=== PATIENT | male | born 1975 | race Caucasian/White ===

== ENCOUNTER 2022-12-17 13:28 | Outpatient (RCR) | payer BC, SELFPAY ==
--- NOTE | 2022-12-17 15:55 | MHC.PT.EP ---
[facility] [place] Office [place] Office [place] Office [address] Laron Moran [address] [phone] F: [phone] F: [phone] F: [phone] F: [phone] Physical Therapy Plan of Care Date of Evaluation: Date of Surgery: Diagnosis: L shoulder pain. 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 Pt is deemed an appropriate candidate to receive skilled PT services to address their physical impairments in order to improve their functional ability. Frequency and Duration: The patient will be seen 2 x/ wk x 5 wks. Short Term Goals: Initiate HEP. Improve baseline pain from 2-5/10 to at most 1-3/10. Fdc Goals: I with Home Program. Pt will no linger be disturbed of sleep d/t shoulder pain; initial: 10% disturbed. Improve SPADI questionnaire by at least 9 points. Pt will be able to place objects on high shelf with managed Sx; initial 01/02. Treatment Plan: Modalities to reduce pain, spasms and effusion. Manual therapy to restore motion and function. Therapeutic exercise to improve strength and flexibility. Neuromuscular re-education for posture and balance. Therapeutic activities to return to functional activities of daily living. Electronically signed by: Xavier Sharma PT. Please sign and return to therapist. Thank you for your referral.
--- NOTE | 2023-02-16 16:25 | MHC.PT.DC ---
[facility] [place] Office [place] Office [place] Office [address] Laron Moran [address] [phone] F: [phone] F: [phone] F: [phone] F: [phone] Physical Therapy Discharge Report Diagnosis: L shoulder pain. Date of Surgery: Date of Evaluation: 12/17/22 Date of Discharge: 02/16/23 Treatments to Date: 1 Cancellations to Date: No Shows to Date: Discharge Status: Patient Elected to Stop Discharge Summary: Pt called to report too many other apts. and to DC. Electronically signed by: Xavier Sharma PT. Please sign and return to therapist. Thank you for your referral.
== END 2023-02-16 16:25 | disposition home or self-care (01) ==
LOC: HO.PTCHIC 13:28
PROVIDERS: PCP Internal Medicine; Visit Provider Internal Medicine
DX: M25.512 Pain in left shoulder (principal)
CPT/HCPCS: 97110; 97161

== ENCOUNTER 2023-02-01 14:42 | Outpatient (AMB) | payer BC, SELFPAY ==
[2023-02-01 14:50] VITALS: BP 135/80; PULSE 80; BMI 21.3
--- NOTE | 2023-02-01 14:50 | MHC.OFFVIS ---
Intake Vital Signs 02/01/23 14:50 Height 5 ft 8 in Weight 139 lb 12.369 oz BMI 21.3 BP 135/80 Blood Pressure Location Lt brachial Position Sitting Pulse 80 Intake Visit Reasons: colonocopy screening Intake Note: Cole presents in office as a new.patient for a colonoscopy screening. PT CC: pt reports having GERD pt denies any other GI Issues Precise Winder Required: No Accompanied by: Self / Same As Patient Allergies lactose Allergy (Mild, Verified 02/01/23 15:21) Diarrhea pollen Adverse Reaction (Uncoded 02/01/23 14:52) Itchy Eyes HPI colonocopy screening HPI Details 47 year old? male here today for pre colonoscopy screening.? Patient was sent to us by his PCP.? This is his first colonoscopy screening.? Patient denies any gastrointestinal symptoms in the past or at present.? Patient is lactose intolerant. Denies any personal or family history of gastrointestinal disease, colon polyps, or cancer.? Denies history of difficulty with sedation or anesthesia in the past.? Negative for history of sleep apnea.? Denies any history of cardiac, renal, pulmonary, or hepatic disease.?? No history of infectious? diseases like hepatitis A, B, C, HIV or tuberculosis.? Patient is not on any anticoagulation therapy. [facility] Medical History Annual visit for general adult medical examination with abnormal findings Erectile dysfunction Family history of prostate cancer in father Pain of left shoulder region Smoker unmotivated to quit Surgical History H/O wisdom tooth extraction Family History Father Prostate cancer, Onset Age: 52 Brother Nephrolithiasis Social History Housing: House Alcohol intake: current Alcohol intake frequency: a few times a month Patient Tobacco Use Status: Current everyday Tobacco user Cigarette Packs Per Day: 1 Cigarettes Per Day: 20 e-Cigarette/Vaping Use: Never Used service: No Current occupational status: employed 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 Cognitive needs: No Hearing needs: No Vision needs: Yes Review of Systems Const Denies weight gain and Denies weight loss ENT Reports no additional complaints, Denies dysphagia and Denies odynophagia Card Reports no additional complaints Resp Reports no additional complaints GI Denies abdominal pain, Denies belching, Denies melena, Denies bloating, Denies change in bowel habits, Denies dysphagia, Denies excessive flatus, Denies dyspepsia, Denies heartburn, Denies diarrhea, Denies loose stools, Denies nausea, Denies odynophagia and Denies vomiting Reports no additional complaints Musc Reports no additional complaints Neuro Reports no additional complaints Psych Reports no additional complaints Endo Reports no additional complaints Physical Exam Vital Signs: Last Vital Signs Pulse 80 02/01/23 14:50 BP 135/80 02/01/23 14:50 BMI result Body Mass Index 21.3 Const General: healthy appearing, no acute distress and well developed Nutritional Appearance: well nourished Orientation/consciousness: patient oriented x3 HEENT Head: Yes normal to inspection, Yes normocephalic and Yes atraumatic Face and sinus: Yes normal facial exam Mouth: Normal oral and palatal mucosa present Throat: Yes posterior oropharynx normal, Yes tonsils normal and Yes uvula midline Eyes General: appearance normal, both eyes and all related structures Neck Neck: Yes normal visual inspection, Yes full ROM and Yes trachea midline Thyroid: Thyroid normal Resp Effort & Inspection: normal respiratory effort, able to speak in complete sentences, no tracheal deviation and symmetric chest movement Auscultation: clear to auscultation bilaterally Cardio Rate: regular rate Heart sounds: S1 normal heart sound present and S2 normal heart sound present GI Inspection: Yes normal to inspection and No distended Palpation (GI): Soft to palpation, not firm, nontender and No hepatosplenomegaly present Auscultation: normal bowel sounds General: Yes no CVA tenderness Back/Spine/Pelvis Back: no CVA tenderness Skin General skin exam: elasticity normal, turgor normal and dry skin Neuro General: patient oriented x3 Psych Appearance: grossly normal Mental Status: mental status grossly normal Speech and movement: Normal speech and movement present Affect: normal affect Assessment & Plan Assessment & Plan (1) Screen for colon cancer: Code(s): Z12.11 - Encounter for screening for malignant neoplasm of colon Plan: Patient denies any GI, cardiac or respiratory symptoms.? Denies any issues with anesthesia in the past.? Denies any history of sleep apnea.? No history infectious diseases in the past or present.? Not on any anticoagulation therapy.? No family or personal history of colon cancer or polyps.? Patient denies melena, hematochezia, unintentional weight loss or ribbon like stools.? Discussed at length the pre-procedure,? prep, diet & medications as well as what to expect prior, during and after the procedure.?? Stressed the importance of good bowel prep. ?Recommended the use of Vaseline or Calmoseptine OTC & baby wipes with bowel movements to promote comfort.? ?Patient verbalizes understanding and agrees to plan of care.? He was given the opportunity to ask questions and all questions answered.? We will see him after the procedure.? Reminded patient to going get blood work done that was ordered by PCP. Thank you for allowing me to participate in his care Coding Level of Care Code New Pt Level 3 (29452) Diagnoses Screen for colon cancer Z12.11 Time Spent (min) 40 Comment 30 minutes spent with patient and additional 10 minutes spent reviewing his records
== END 2023-02-01 15:23 | disposition home or self-care (01) ==
PROVIDERS: PCP Internal Medicine; Visit Provider Nurse Practitioner Family
DX: Z01.818 Encounter for other preprocedural examination (principal); Z12.11 Encounter for screening for malignant neoplasm of colon
CPT/HCPCS: S0285

== ENCOUNTER → 2023-02-01 14:42 | Outpatient (BNVA) | payer BC, SELFPAY | PROVIDERS: PCP Internal Medicine; Visit Provider Nurse Practitioner Family ==

== ENCOUNTER 2023-03-22 15:55 | Outpatient (AMB) | payer BC, SELFPAY ==
--- NOTE | 2023-03-22 15:57 | MHC.OFFWIV ---
Intake Vital Signs 03/22/23 15:58 Height 5 ft 8 in Weight 130 lb BMI 19.8 BP 140/90 H Blood Pressure Location Lt brachial Position Sitting Pulse 78 Pulse Source Pulse Oximeter Pulse Oximetry (%) 98 Oxygen Delivery Method Room Air Intake Visit Reasons: EP LT Side Shoulder pain Intake Note: Patient here for left shoulder pain. he did go see his pcp and they believe it could be a pinched nerve but the pain has become very painful. pt states the shoulder pain radiates down to the elbow and wrist, hips and calves. This weekend he started having jaw pain where he could bare talk. Patient Tobacco Use Status: Current everyday Tobacco user Allergies lactose Allergy (Mild, Verified 03/23/23 14:38) Diarrhea pollen Adverse Reaction (Uncoded 03/23/23 14:38) Itchy Eyes Medication List - Last Reconciled 03/23/23 by Zachery Carlos MD cyclobenzaprine 10 mg PO BEDTIME meloxicam 15 mg PO DAILY tadalafil (Cialis) 20 mg PO DAILY PRN Do you need a note to return to daycare/school/sports/work: No HPI EP LT Side Shoulder pain HPI Details 47-year-old male presents to the office for a sick visit. Patient comes to the office with his . He is complaining of low back pain, ankle pain and wrist pain. He reports he has had low back pain for many years but has gotten worse in the last few weeks. He was on vacation when the pain symptoms worsened. He had to go to a walk-in and received an injection, anti-inflammatories and also opiate medications. Patient continues to have low back pain. It is radiating down his right leg. No numbness or weakness. He has resumed work. [facility] Medical History Annual visit for general adult medical examination with abnormal findings Erectile dysfunction Family history of prostate cancer in father Pain of left shoulder region Smoker unmotivated to quit Surgical History H/O wisdom tooth extraction Family History Father Prostate cancer, Onset Age: 52 Brother Nephrolithiasis Social History Housing: House Alcohol intake: current Alcohol intake frequency: a few times a month Patient Tobacco Use Status: Current everyday Tobacco user Cigarette Packs Per Day: 1 Cigarettes Per Day: 20 e-Cigarette/Vaping Use: Never Used service: No Current occupational status: employed 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 Cognitive needs: No Hearing needs: No Vision needs: Yes Physical Exam Vital Signs: Last Vital Signs Pulse 78 03/22/23 15:58 BP 140/90 H 03/22/23 15:58 Pulse Ox 98 03/22/23 15:58 Oxygen Delivery Method Room Air 03/22/23 15:58 BMI result Body Mass Index 19.8 Const General: cooperative and healthy appearing Nutritional Appearance: well nourished Orientation/consciousness: patient oriented x3 Limitations: no limitations HEENT Head: Yes normal to inspection Eyes General: appearance normal, both eyes and all related structures Neck Neck: Yes normal visual inspection Chest Chest palpation & inspection: normal palpation of entire chest wall Resp Effort & Inspection: normal respiratory effort Neuro General: patient oriented x3 Assessment & Plan Assessment & Plan (1) Low back pain: Code(s): M54.50 - Low back pain, unspecified Plan: Patient was encouraged to get physical therapy done. He is more interested in getting a diagnostic test done for his spine. For this he would have to see his primary care provider. Anti-inflammatory and muscle relaxants have been called in. Medications: New meloxicam 15 mg PO DAILY 14 tabs 0RF cyclobenzaprine 10 mg PO BEDTIME 14 tabs 0RF Coding Level of Care Code Est Pt Level 3 (76664) Diagnoses Low back pain M54.50
[2023-03-22 15:58] VITALS: BP 140/90; PULSE 78; O2SAT 98; BMI 19.8
== END 2023-03-22 16:42 | disposition home or self-care (01) ==
PROVIDERS: PCP Internal Medicine; Visit Provider Internal Medicine
DX: M54.50 Low back pain, unspecified (principal)
CPT/HCPCS: 99213

== ENCOUNTER 2023-08-26 13:45 | Outpatient (AMB) | payer BC, SELFPAY ==
--- NOTE | 2023-08-26 13:53 | MHC.PC.OV ---
Vital Signs 08/26/23 13:54 Height 5 ft 8 in Weight 145 lb BMI 22.0 BP 146/80 H Blood Pressure Location Rt brachial Position Sitting Pulse 78 Pulse Source Pulse Oximeter Pulse Oximetry (%) 98 Oxygen Delivery Method Room Air Intake Visit Reasons: Sore Jaw Intake Note: Pt is here today c/o Lt shoulder pain into arm, no injury noted and jaw a times feels painful Allergies lactose Allergy (Mild, Verified 08/26/23 14:05) Diarrhea pollen Adverse Reaction (Uncoded 08/26/23 14:05) Itchy Eyes Medication List - Last Reconciled 08/26/23 by Lita Man MD No Known Home Meds Tobacco use date assessed: 08/26/23 Dental Screening Dental Screen Date: 08/26/23 Did you have a dental visit in the last 12 months?: No Was dental information given to patient?: Patient has dentist HPI Sore Jaw HPI Details 48-year-old male here today complaining of migratory joint pain, now more pronounced in left upper arm and shoulder. Patient would get aching pain in posterior back, knees, shoulders, fingers, and even on both temporomandibular joints. Patient states that he has been told that he frequently grinds his teeth when sleeping. Denies any history of trauma, no strenuous exertion. He has occasional erectile dysfunction, previously was taking Cialis as needed, would like to see if he can try just taking the daily Cialis dose. [facility] Medical History (Updated 08/26/23 @ 14:25 by Lita Man MD) Polyarthralgia Smoker unmotivated to quit Pain of left shoulder region Family history of prostate cancer in father Erectile dysfunction Annual visit for general adult medical examination with abnormal findings Surgical History H/O wisdom tooth extraction Family History Father Prostate cancer, Onset Age: 52 Brother Nephrolithiasis Social History Housing: House Alcohol intake: current Alcohol intake frequency: a few times a month Patient Tobacco Use Status: Current everyday Tobacco user Cigarette Packs Per Day: 1 Cigarettes Per Day: 20 e-Cigarette/Vaping Use: Never Used service: No Current occupational status: employed 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 1. Little interest or pleasure in doing things: not at all 2. Feeling down, depressed, or hopeless: not at all 3. Trouble falling or staying asleep, or sleeping too much: not at all 4. Feeling tired or having little energy: not at all 5. Poor appetite or overeating: not at all 6. Feeling bad about yourself - or that you are a failure or have let yourself or your family down: not at all 7. Trouble concentrating on things, such as reading the newspaper or watching television: not at all 8. Moving or speaking so slowly that other people could have noticed. Or the opposite - being so fidgety or restless that you have been moving around a lot more than usual: not at all 9. Thoughts that you would be better off or of hurting yourself in some way: not at all Total score: 0 Depression Screening Interpretation: Negative Depression Screening Done: Yes 60275 - PHQ-9 Billing: Yes Source: Developed by Drs. Howie Burnham, Mitzi Nino, Michael Johns and colleagues, with an educational ghazal from [employer]. Thrive Questionnaire Date Thrive assessed: 08/26/23 I am a: Patient What is your living situation today?: I have a steady place to live Within the past 12 months, did the food you bought not last and you didn't have the money to get more?: Never true Within the past 12 months, did you worry whether your food would run out before you got money to buy more?: Never true Do you have trouble paying for medicines?: No Do you have trouble getting transportation to medical appointments?: No Do you have trouble paying your heating and electricity bill?: No Do you have trouble taking care of your child, family member or friend?: No Do you have trouble with day-to-day activities such as bathing, preparing meals, shopping, managing finances, etc.?: No Are you currently unemployed and looking for a job?: No Are you interested in more education?: No THRIVE Score: 0 AUDIT C Alcohol Use Questionnaire (AUDIT-C) 1. How often do you have a drink containing alcohol?: 4 or more times a week 2. How many drinks containing alcohol do you have on a typical day when you are drinking?: 3 or 4 3. How often do you have six or more drinks on one occasion?: Weekly Total Score: 8 LOLIS-7 AMB Questionnaire LOLIS-7 Date LOLIS - 7 assessed: 08/26/23 Feeling nervous, anxious, or on edge: 0 = Not at all Not being able to stop or control worryin = Not at all Worrying too much about different things: 0 = Not at all Trouble relaxin = Not at all Being so restless that it is hard to sit still: 0 = Not at all Becoming easily annoyed or irritable: 0 = Not at all Feeling afraid as if something awful might happen: 0 = Not at all Total LOLIS-7 score (0-4 normal; 5-9 mild; 10-14 moderate; 15-21 severe): 0 Source: Developed by Drs. Howie Burnham, Mitzi Nino, Michael Johns and colleagues, with an educational ghazal from [employer]. LOLIS-7 Assessment Billing LOLIS-7 Assessment Tool: LOLIS-7 Assessment 01943 Review of Systems Const Denies difficulty sleeping, Denies fatigue, Denies headache(s) and Reports weight gain ENT Reports no additional complaints, Reports Normal hearing present and Denies headache(s) Card Reports no additional complaints Resp Reports no additional complaints GI Denies abdominal pain, Denies belching, Denies melena, Denies bloating, Denies change in bowel habits, Denies excessive flatus, Denies dyspepsia, Denies heartburn, Denies nausea and Denies vomiting Reports no additional complaints Musc Reports no additional complaints Neuro Reports no additional complaints, Reports Normal hearing present, Denies headache(s) and Denies Sensory deficit (Neuro) Psych Reports no additional complaints Endo Reports no additional complaints and Denies fatigue Physical exam (Primary Care) Vital Signs: Last Vital Signs Pulse 78 08/26/23 13:54 BP 146/80 H 08/26/23 13:54 Pulse Ox 98 08/26/23 13:54 Oxygen Delivery Method Room Air 08/26/23 13:54 BMI result Body Mass Index 22.0 Tobacco/Smoking Status: Tobacco use Status Tobacco use date assessed 08/26/23 08/26/23 14:02 Patient Tobacco Use Status Current everyday Tobacco 08/26/23 14:02 Tobacco use type 03/22/23 15:53 e-Cigarette/Vaping Use Never Used 08/26/23 14:02 Are you ready to quit: No Tobacco cessation counseling provided: Yes PHQ-9: PHQ-9 Score PHQ-9: Total score 0 08/26/23 14:25 Depression Screening Interpretation: Negative Thrive Assessment: Date of Thrive Assessment Date Thrive assessed 08/26/23 08/26/23 14:25 Const General: no acute distress and alert Nutritional Appearance: average body habitus Orientation/consciousness: patient oriented x3 Limitations: no limitations HENMT Head: Yes normocephalic and Yes atraumatic Ears: hearing grossly normal bilaterally and external ears normal General nose exam: Normal external nose present Face and sinus: Yes face symmetric Mouth: moist mucous membranes Eyes Conjunctivae: conjunctivae normal Sclerae: sclerae normal Pupils: Equal, round and reactive pupils present EOM: EOMs intact bilaterally Neck Neck: Yes full ROM and Yes no lymphadenopathy Thyroid: Thyroid normal Resp Effort & Inspection: normal respiratory effort and able to speak in complete sentences Auscultation: clear to auscultation bilaterally Cardio Jugular venous distension: no JVD Rate: regular rate Rhythm: regular rhythm Heart sounds: S1 normal heart sound present and S2 normal heart sound present GI Inspection: Yes normal to inspection Palpation (GI): Soft to palpation Auscultation: normal bowel sounds General: Yes no CVA tenderness Back/Spine/Pelvis Back: no CVA tenderness Skin General skin exam: no rashes or lesions noted Neuro General: patient oriented x3, gait normal, moves all extremities, no focal motor deficits and CN's II-XI intact bilaterally Cranial nerves: Yes Equal, round and reactive pupils present and Yes Normal hearing present Cognition (Neuro): normal cognition Gait exam (Neuro): Normal gait present Motor exam (neuro): 5/5 motor strength present throughout Sensory Exam: No Sensory deficit (Neuro) Extrem General: Yes normal to inspection, Yes full ROM, Yes no pedal edema and Yes normal gait Assessment and Plan Assessment & Plan (1) Polyarthralgia: Code(s): M25.50 - Pain in unspecified joint Plan: Has polyarthralgia, labs ordered to check MYLES, rheumatoid factor, sed rate, TSH, CRP, Lyme anti body titer (2) Erectile dysfunction: Code(s): N52.9 - Male erectile dysfunction, unspecified Qualifiers: Erectile dysfunction type: unspecified Qualified Code(s): N52.9 - Male erectile dysfunction, unspecified Plan: Patient would like to switch from as needed Cialis to daily dosing. Prescription was sent for tadalafil 5 mg to take 1 tablet once a day to be taken at same time every day (3) Elevated blood pressure reading in office without diagnosis of hypertension: Code(s): R03.0 - Elevated blood-pressure reading, without diagnosis of hypertension Plan: Systolic blood pressure mildly elevated, likely due to patient currently in some discomfort due to pain and stiffness in left shoulder joint, will monitor blood pressure, strongly advised to quit smoking here and adhere to low-sodium diet, reminded that he has an appointment for physical in 3 month Orders: Orders MYLES Reflex Titer and Pattern 08/26/23 M25.50 - Pain in unspecified joint Rheumatoid Factor 08/26/23 M25.50 - Pain in unspecified joint Erythrocyte Sedimentation Rate 08/26/23 M25.50 - Pain in unspecified joint TSH reflex Free T4 08/26/23 M25.50 - Pain in unspecified joint Lyme IgG/IgM w/reflex to WB 08/26/23 M25.50 - Pain in unspecified joint CRP High Sensitivity 08/26/23 M25.50 - Pain in unspecified joint Medications: New tadalafil (Cialis) 5 mg PO DAILY 30 tabs 0RF Coding Level of Care Code Est Pt Level 3 (36768) Diagnoses Polyarthralgia M25.50 Erectile dysfunction, unspecified erectile dysfunction type N52.9 Erectile dysfunction type: unspecified Elevated blood pressure reading in office without diagnosis of hypertension R03.0 Additional Codes LOLIS-7 Assessment Billing - LOLIS-7 Assessment Tool: LOLIS-7 Assessment 37878 ([id number])
[2023-08-26 13:54] VITALS: BP 146/80; PULSE 78; O2SAT 98; BMI 22.0
== END 2023-08-26 16:04 | disposition home or self-care (01) ==
PROVIDERS: PCP Internal Medicine; Visit Provider Internal Medicine
DX: M25.50 Pain in unspecified joint (principal); N52.9 Male erectile dysfunction, unspecified; R03.0 Elevated blood-pressure reading, without diagnosis of hypertension
CPT/HCPCS: 99213

== ENCOUNTER 2023-08-28 06:51 | Outpatient (REF) | payer BC, SELFPAY ==
[2023-08-28 11:58] LABS: Rheumatoid Factor < 13.0 IU/mL (<15.0)
[2023-08-28 12:12] LABS: Alanine Aminotransferase 16 U/L (0-40); Anion Gap 12 (12-20); Aspartate Amino Transferase 22 U/L (5-37); Blood Urea Nitrogen 7 mg/dL (9-16); Calcium 9.4 mg/dL (8.4-10.2); Carbon Dioxide 28 mmol/L (22-29); Chloride 106 mmol/L (96-108); Cholesterol 185 mg/dL (<200); Estimated Glomerular Filt Rate > 60; Glucose Fasting 95 mg/dL (60-99); HDL Cholesterol 46 mg/dL (>40); LDL Cholesterol Calculated 110 mg/dL (<100); Potassium 4.4 mmol/L (3.3-5.1); Sodium 142 mmol/L (135-145); Triglycerides 145 mg/dL (<150)
[2023-08-28 12:25] LABS: PSA,Total (Free>4and<10) 0.52 ng/mL (0.00-4.00)
[2023-08-28 12:30] LABS: TSH reflex Free T4 2.86 uIU/mL (0.32-4.0)
[2023-08-28 12:44] LABS: Erythrocyte Sedimentation Rate 4 MM/HR (0-15)
[2023-08-30 14:40] LABS: CRP High Sensitivity 0.4 mg/L
[2023-09-01 07:08] LABS: Lyme Blot 9.91 index
[2023-09-01 14:03] LABS: Lyme Abs Screen POSITIVE
[2023-09-02 13:44] LABS: Anti Nuclear Antibody Screen NEGATIVE (NEGATIVE)
[2023-09-02 16:18] LABS: Testosterone, Total 623 ng/dL (250-1100)
[2023-09-03 15:08] LABS: 18 KD (IgG) Band REACTIVE; 23 KD (IgG) Band NON-REACTIVE; 23 KD (IgM) Band REACTIVE; 28 KD (IgG) Band REACTIVE; 30 KD (IgG) Band REACTIVE; 39 KD (IgM) Band REACTIVE; 39KD (IgG) Band REACTIVE; 41 KD (IgM) Band NON-REACTIVE; 41KD (IgG) Band REACTIVE; 45 KD (IgG) Band REACTIVE; 58 KD (IgG) Band REACTIVE; 66 KD (IgG) Band REACTIVE; 93 KD (IgG) Band REACTIVE; Lyme IgG Blot Interp POSITIVE (NEGATIVE); Lyme IgM Blot Interp POSITIVE (NEGATIVE)
== END 2023-08-28 06:52 | disposition home or self-care (01) ==
LOC: HO.HMGCLDS 06:51
PROVIDERS: PCP Internal Medicine; Visit Provider Internal Medicine
DX: Z00.01 Encounter for general adult medical examination with abnormal findings (principal); Z12.5 Encounter for screening for malignant neoplasm of prostate; M25.50 Pain in unspecified joint; N52.9 Male erectile dysfunction, unspecified; Z80.42 Family history of malignant neoplasm of prostate
CPT/HCPCS: 36415; 80048; 80061; 84153; 84402; 84403; 84443; 84450; 84460; 85652; 86038; 86141; 86431; 86617; 86618

== ENCOUNTER 2023-11-18 14:07 | Outpatient (AMB) | payer BC, SELFPAY ==
[2023-11-18 14:11] VITALS: BP 146/80; PULSE 90; TEMP 36.5; O2SAT 96; BMI 22.7
--- NOTE | 2023-11-18 14:11 | MHC.OFFWIV ---
Intake Vital Signs 11/18/23 14:11 Height 5 ft 8 in Weight 149 lb BMI 22.7 BP 146/80 H Blood Pressure Location Lt brachial Position Sitting Pulse 90 Pulse Source Pulse Oximeter Temp 97.7 F Temp Source Temporal Artery Scan Pulse Oximetry (%) 96 Oxygen Delivery Method Room Air Intake Visit Reasons: EP LT elbow swelling Intake Note: pt is here today for lft elbow swelling started 11/07 Patient Tobacco Use Status: Current everyday Tobacco user Allergies lactose Allergy (Mild, Verified 11/18/23 14:14) Diarrhea pollen Adverse Reaction (Uncoded 08/26/23 14:05) Itchy Eyes Do you need a note to return to daycare/school/sports/work: No HPI HPI Comments History of Present Illness Details The patient presents today for evaluation of left elbow swelling. He states it has been going on for about a week but really only noticed it today when he went to lean on it. The does admit to leaning on his elbow on the left quite frequently during his workday. This has been going on for many years. He does not have any pain in the elbow. No redness PFSH Medical History (Updated 08/26/23 @ 14:25 by Lita Man MD) Polyarthralgia Smoker unmotivated to quit Pain of left shoulder region Family history of prostate cancer in father Erectile dysfunction Annual visit for general adult medical examination with abnormal findings Surgical History H/O wisdom tooth extraction Family History Father Prostate cancer, Onset Age: 52 Brother Nephrolithiasis Social History Housing: House Alcohol intake: current Alcohol intake frequency: a few times a month Patient Tobacco Use Status: Current everyday Tobacco user Cigarette Packs Per Day: 1 Cigarettes Per Day: 20 e-Cigarette/Vaping Use: Never Used service: No Current occupational status: employed 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 Cognitive needs: No Hearing needs: No Vision needs: Yes Physical Exam Vital Signs: Last Vital Signs Temp 97.7 F 11/18/23 14:11 Pulse 90 11/18/23 14:11 BP 146/80 H 11/18/23 14:11 Pulse Ox 96 11/18/23 14:11 Oxygen Delivery Method Room Air 11/18/23 14:11 BMI result Body Mass Index 22.7 Const General: healthy appearing and no acute distress Orientation/consciousness: patient oriented x3 Eyes Corneas: corneas normal Pupils: Equal, round and reactive pupils present Chest Chest palpation & inspection: no tenderness Resp Effort & Inspection: normal respiratory effort and able to speak in complete sentences GI Palpation (GI): nontender Neuro General: patient oriented x3 Cranial nerves: Yes Equal, round and reactive pupils present Extrem Other: Left upper extremity: Left elbow full range of motion. Olecranon bursitis noted. No overlying erythema Psych Appearance: grossly normal Attitude: cooperative Assessment & Plan Assessment & Plan (1) Olecranon bursitis of left elbow: Code(s): M70.22 - Olecranon bursitis, left elbow Plan Olecranon bursitis. Recommend to change his positioning at work and not lean on his elbow. Use ibuprofen if he develops pain. Coding Level of Care Code Est Pt Level 3 (38618) Diagnoses Olecranon bursitis of left elbow M70.22
== END 2023-11-18 14:56 | disposition home or self-care (01) ==
PROVIDERS: PCP Internal Medicine; Visit Provider Emergency Medicine
DX: M70.22 Olecranon bursitis, left elbow (principal)
CPT/HCPCS: 99213

== ENCOUNTER 2023-11-24 07:54 | Outpatient (AMB) | payer BC, SELFPAY ==
--- NOTE | 2023-11-24 08:03 | A.OFFPC_ITS ---
Vital Signs 11/24/23 08:04 Height 5 ft 8 in Weight 146 lb BMI 22.2 BP 142/80 H Blood Pressure Location Rt brachial Position Sitting Pulse 96 Pulse Source Pulse Oximeter Pulse Oximetry (%) 98 Oxygen Delivery Method Room Air Intake Visit Reasons: Annual PE Intake Note: Pt is here today for his PE Allergies lactose Allergy (Mild, Verified 11/24/23 08:15) Diarrhea pollen Adverse Reaction (Uncoded 11/24/23 08:15) Itchy Eyes Medication List - Last Reconciled 11/24/23 by Lita Man MD tadalafil (Cialis) 5 mg PO DAILY Tobacco use date assessed: 11/24/23 Dental Screening Dental Screen Date: 11/24/23 Did you have a dental visit in the last 12 months?: No Was dental information given to patient?: Patient has dentist HPI Annual PE HPI Details 48 year old male, here today for a physi jo exam. His blood pressure has consistently running high. Denies any chest pain headache, lightheadedness or shortness of breath. He tries to eat a healthy diet and stays that he is very active while at work, but does not engage in any regular exercise. Continues to smoke cigarettes, with no desire to quit at present time. Has intermittent episodes of erectile dysfunction for which she takes tadalafil 5 mg daily , which has been helping. He is due for a screening colonoscopy. [facility] Medical History (Updated 11/24/23 @ 08:42 by Lita Man MD) Essential hypertension Polyarthralgia Smoker unmotivated to quit Pain of left shoulder region Family history of prostate cancer in father Erectile dysfunction Annual visit for general adult medical examination with abnormal findings Surgical History H/O wisdom tooth extraction Family History (Updated 11/24/23 @ 08:21 by Lita Man MD) Father Prostate cancer, Onset Age: 52 Brother Nephrolithiasis Brother Acute myocardial infarction, Onset Age: 44 Social History Housing: House Alcohol intake: current Alcohol intake frequency: a few times a month Patient Tobacco Use Status: Current everyday Tobacco user Cigarette Packs Per Day: 1 Cigarettes Per Day: 20 e-Cigarette/Vaping Use: Never Used service: No Current occupational status: employed 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 1. Little interest or pleasure in doing things: not at all 2. Feeling down, depressed, or hopeless: not at all 3. Trouble falling or staying asleep, or sleeping too much: not at all 4. Feeling tired or having little energy: not at all 5. Poor appetite or overeating: not at all 6. Feeling bad about yourself - or that you are a failure or have let yourself or your family down: not at all 7. Trouble concentrating on things, such as reading the newspaper or watching television: not at all 8. Moving or speaking so slowly that other people could have noticed. Or the opposite - being so fidgety or restless that you have been moving around a lot more than usual: not at all 9. Thoughts that you would be better off or of hurting yourself in some way: not at all Total score: 0 Depression Screening Interpretation: Negative Depression Screening Done: Yes 33018 - PHQ-9 Billing: Yes Source: Developed by Drs. Howie Burnham, Mitzi Nino, Michael Johns and colleagues, with an educational ghazal from [employer]. Thrive Questionnaire Date Thrive assessed: 11/24/23 I am a: Patient What is your living situation today?: I have a steady place to live Within the past 12 months, did the food you bought not last and you didn't have the money to get more?: Never true Within the past 12 months, did you worry whether your food would run out before you got money to buy more?: Never true Do you have trouble paying for medicines?: No Do you have trouble getting transportation to medical appointments?: No Do you have trouble paying your heating and electricity bill?: No Do you have trouble taking care of your child, family member or friend?: No Do you have trouble with day-to-day activities such as bathing, preparing meals, shopping, managing finances, etc.?: No Are you currently unemployed and looking for a job?: No Are you interested in more education?: No THRIVE Score: 0 AUDIT C Alcohol Use Questionnaire (AUDIT-C) 1. How often do you have a drink containing alcohol?: 4 or more times a week 2. How many drinks containing alcohol do you have on a typical day when you are drinking?: 3 or 4 3. How often do you have six or more drinks on one occasion?: Weekly Total Score: 8 LOLIS-7 AMB Questionnaire LOLIS-7 Date LOLIS - 7 assessed: 11/24/23 Feeling nervous, anxious, or on edge: 0 = Not at all Not being able to stop or control worryin = Not at all Worrying too much about different things: 0 = Not at all Trouble relaxin = Not at all Being so restless that it is hard to sit still: 0 = Not at all Becoming easily annoyed or irritable: 0 = Not at all Feeling afraid as if something awful might happen: 0 = Not at all Total LOLIS-7 score (0-4 normal; 5-9 mild; 10-14 moderate; 15-21 severe): 0 Source: Developed by Drs. Howie Burnham, Mitzi Nino, Michael Johns and colleagues, with an educational ghazal from [employer]. LOLIS-7 Assessment Billing LOLIS-7 Assessment Tool: LOLIS-7 Assessment 77237 Review of Systems Const Denies difficulty sleeping Eyes Reports requires corrective lenses ENT Reports no additional complaints Card Reports no additional complaints Resp Reports no additional complaints GI Denies abdominal pain, Denies belching, Denies melena, Denies bloating, Denies change in bowel habits, Denies excessive flatus, Denies dyspepsia, Denies heartburn, Denies nausea and Denies vomiting Reports no additional complaints Musc Reports no additional complaints Skin/Breast Denies lesions and Denies rash Neuro Reports no additional complaints and Denies Sensory deficit (Neuro) Psych Reports no additional complaints Endo Reports no additional complaints Igor/Lymph Reports no additional complaints Aller/Immun Reports no additional complaints Physical exam (Primary Care) Vital Signs: Last Vital Signs Pulse 96 11/24/23 08:04 BP 142/80 H 11/24/23 08:04 Pulse Ox 98 11/24/23 08:04 Oxygen Delivery Method Room Air 11/24/23 08:04 BMI result Body Mass Index 22.2 Tobacco/Smoking Status: Tobacco use Status Tobacco use date assessed 11/24/23 11/24/23 08:08 Patient Tobacco Use Status Current everyday Tobacco 11/24/23 08:08 Tobacco use type 03/22/23 15:53 e-Cigarette/Vaping Use Never Used 11/24/23 08:08 Are you ready to quit: No Tobacco cessation counseling provided: Yes PHQ-9: PHQ-9 Score PHQ-9: Total score 0 11/24/23 08:22 Depression Screening Interpretation: Negative Thrive Assessment: Date of Thrive Assessment Date Thrive assessed 11/24/23 11/24/23 08:08 Const General: no acute distress and alert Nutritional Appearance: average body habitus Orientation/consciousness: patient oriented x3 HENMT Head: Yes normocephalic and Yes atraumatic Ears: hearing grossly normal bilaterally, external ears normal and Abnormal EAC present excessive cerumen on the left General nose exam: Normal external nose present Face and sinus: Yes face symmetric Mouth: moist mucous membranes Eyes Conjunctivae: conjunctivae normal Sclerae: sclerae normal Pupils: Equal, round and reactive pupils present EOM: EOMs intact bilaterally Neck Neck: Yes full ROM and Yes no lymphadenopathy Thyroid: Thyroid normal Chest Chest palpation & inspection: normal inspection of the chest and normal palpation of entire chest wall Resp Effort & Inspection: normal respiratory effort and able to speak in complete sentences Auscultation: clear to auscultation bilaterally Cardio Jugular venous distension: no JVD Rate: regular rate Rhythm: regular rhythm Heart sounds: S1 normal heart sound present and S2 normal heart sound present GI Inspection: Yes normal to inspection Palpation (GI): Soft to palpation Auscultation: normal bowel sounds General: Yes no CVA tenderness Back/Spine/Pelvis Back: no CVA tenderness Skin General skin exam: no rashes or lesions noted Neuro General: patient oriented x3, gait normal, moves all extremities, no focal motor deficits and CN's II-XI intact bilaterally Cranial nerves: Yes Equal, round and reactive pupils present Cognition (Neuro): normal cognition Gait exam (Neuro): Normal gait present Motor exam (neuro): 5/5 motor strength present throughout Sensory Exam: No Sensory deficit (Neuro) Extrem General: Yes normal to inspection, Yes full ROM, Yes no pedal edema and Yes normal gait Left upper extremity: elbow/forearm Details: swelling Location: of the olecranon Psych Appearance: grossly normal and well kempt Mental Status: mental status grossly normal Speech and movement: Normal speech and movement present Affect: normal affect Results Reviewed Results Reviewed: Name: Cole Grimm Age/Sex: 48[facility] 1975 [id number] [id number] Attend Dr: Lita Man MD Re08/28/23 Status: DEP REF Location: [facility] Disch: SPEC : [id number] CAHRLES: 08/28/23 STATUS: COMP REQ : [id number] RECD: 08/28/[address]: Lita Man MD COMP: 08/28/23 ENTERED: 08/28/[address]: ORDERED: Met Prof Fast, AST, ALT, Lipid Panel, TSH Rflx Test Result Flag Reference Sodium 142 135-145 mmol/L Potassium 4.4 3.3-5.1 mmol/L CL 106 96-108 mmol/L CO2 28 22-29 mmol/L Gap 12 12-20 BUN 7 L 9-16 mg/dL Creat 0.96 0.5-1.4 mg/dL EGFR > 60 NOTE: For -Malag[place] individuals, multiply the result by 1.210. Chronic Kidney Disease: Estimated GFR < 60 mL/min/1.73m2 Severe Kidney Disease: Estimated GFR < 15 mL/min/1.73m2 FBS 95 60-99 mg/dL CA 9.4 8.4-10.2 mg/dL AST (GOT) 22 5-37 U/L ALT (GPT) 16 0-40 U/L Triglyceride 145 <150 mg/dL Desirable Triglyceride: less than 150 mg/dL Borderline High Triglyceride 150-199 mg/dL High Triglyceride: 200-499 mg/dL Very High Triglyceride: greater than or equal to 5OO mg/dL Cholesterol 185 <200 mg/dL Desirable Cholesterol: less than 200 mg/dL Borderline High Cholesterol: 200-239 mg/dL High Cholesterol: greater than 239 mg/dL LDL Calculated 110 H <100 mg/dL Desirable LDL: less than 100 mg/dL Near Optimal/Above Optimal LDL: 110-129 mg/dL Borderline High LDL: 130-159 mg/dL High LDL: 160-189 mg/dL Very High LDL: greater than or equal to 190 mg/dL HDL 46 >40 mg/dL Desirable HDL: greater than 40 mg/dL Note: This HDL assay may give artificially low results in patients with liver disease. TSH 2.86 0.32-4.0 uIU/mL Assessment and Plan Assessment & Plan (1) Annual visit for general adult medical examination with abnormal findings: Code(s): Z00.01 - Encounter for general adult medical examination with abnormal findings Plan: Recent fasting labs reviewed with patient.. Recommended dental visit every 6 months and regular eye exams, at least every 2 years. Take adequate calcium in diet and vitamin-D 3 at 2000 IU per cap once a day, in addition to weight- bearing exercises to help maintain good muscle tone and weight control. Instructed to do self-testicular exam to check for any mass. Referred for screening colonoscopy, awaiting appointment. Had 2 COVID vaccine does not want to get further vaccination, refused flu shot, up-to-date with Tdap (2) Essential hypertension: Code(s): I10 - Essential (primary) hypertension Plan: Blood pressure elevated. Will start on lisinopril 5 mg per tablet to take once a day in a.m., reinforced importance of following a low-salt diet, smoking cessation strongly advised, getting regular exercise. See nurse navigator in 2 weeks to check blood pressure after starting lisinopril. (3) Swelling of left elbow joint: Code(s): M25.422 - Effusion, left elbow Plan: No improvement with conservative measures, referred to orthopedics for further treatment (4) Smoker unmotivated to quit: Code(s): F17.200 - Nicotine dependence, unspecified, uncomplicated Plan: Patient strongly advised to stop smoking, as smoking damages blood vessels, degenerative of joints and spine, damage to lungs and heart., predisposes to developing certain cancers like lung, breast, bladder, colon. Recommended to try decreasing cigarette use by 1-2 cigarettes a day. Advised to monitor what triggers are for smoking so that this can be discussed on the next office visit. We can discuss different options to quit smoking when ready. (5) Erectile dysfunction: Code(s): N52.9 - Male erectile dysfunction, unspecified Qualifiers: Erectile dysfunction type: unspecified Qualified Code(s): N52.9 - Male erectile dysfunction, unspecified Plan: Takes tadalafil as needed (6) Colon cancer screening: Code(s): Z12.11 - Encounter for screening for malignant neoplasm of colon Plan: Referred to GI Clinic for screening colonoscopy Orders: Referrals Orthopedics Referral M25.422 - Effusion, left elbow Gastroenterology Referral Z12.11 - Encounter for screening for malignant neoplasm of colon Medications: New lisinopril 5 mg PO DAILY 30 tabs 0RF I10 - Essential (primary) hypertension Coding Level of Care Code Est Pt Prev Care 40-64y(55932) Diagnoses Annual visit for general adult medical examination with abnormal findings Z00.01 Essential hypertension I10 Swelling of left elbow joint M25.422 Smoker unmotivated to quit F17.200 Erectile dysfunction, unspecified erectile dysfunction type N52.9 Erectile dysfunction type: unspecified Colon cancer screening Z12.11 Additional Codes LOLIS-7 Assessment Billing - LOLIS-7 Assessment Tool: LOLIS-7 Assessment 28102 ([id number])
[2023-11-24 08:04] VITALS: BP 142/80; PULSE 96; O2SAT 98; BMI 22.2
== END 2023-11-24 08:43 | disposition home or self-care (01) ==
PROVIDERS: Visit Provider Internal Medicine
DX: Z00.01 Encounter for general adult medical examination with abnormal findings (principal); I10 Essential (primary) hypertension; M25.422 Effusion, left elbow; F17.210 Nicotine dependence, cigarettes, uncomplicated; N52.9 Male erectile dysfunction, unspecified; Z12.11 Encounter for screening for malignant neoplasm of colon
CPT/HCPCS: 99213; 99396

== ENCOUNTER 2023-12-09 15:10 | Outpatient (AMB) | payer BC, SELFPAY ==
--- NOTE | 2023-12-09 15:16 | MHC.OFFVIS ---
Vital Signs 12/09/23 15:19 Height 5 ft 8 in Weight 146 lb BMI 22.2 Intake Visit Reasons: M25.422 - Effusion, left elbow Intake Note: Cole a 48 year old male who presents today as a new patient for an evaluation of left elbow. Patient reports a visible lump that has been present for about a month. Denies any pain however he does have discomfort with leaning on elbow. No numbness or tingling. Denies any injury. States being seen by his PCP who recommended lump be drained and referred him to orthopedics. Allergies lactose Allergy (Mild, Verified 12/09/23 15:21) Diarrhea pollen Adverse Reaction (Uncoded 12/09/23 15:21) Itchy Eyes HPI HPI M25.422 - Effusion, left elbow: Details: 48-year-old male who presents to the office today for evaluation of left elbow. He reports a lump on his elbow for about a month. He was seen by his PCP who recommended the lump to be drained and referred him to our office. He denies any pain however he does have discomfort with leaning on his elbow. He denies any numbness or tingling. He has not had any injury in the past. [facility] Medical History (Updated 12/09/23 @ 16:09 by Mai Romeo PA-C) Essential hypertension Polyarthralgia Smoker unmotivated to quit Pain of left shoulder region Family history of prostate cancer in father Erectile dysfunction Annual visit for general adult medical examination with abnormal findings Surgical History H/O wisdom tooth extraction Family History (Updated 11/24/23 @ 08:21 by Lita Man MD) Father Prostate cancer, Onset Age: 52 Brother Nephrolithiasis Brother Acute myocardial infarction, Onset Age: 44 Social History (Updated 12/09/23 @ 15:19 by CHASIDY Gil[place]) Housing: House Alcohol intake: current Alcohol intake frequency: a few times a month Patient Tobacco Use Status: Current everyday Tobacco user Cigarette Packs Per Day: 1 Cigarettes Per Day: 20 e-Cigarette/Vaping Use: Never Used service: No Current occupational status: employed 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, 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 Cognitive needs: No Hearing needs: No Vision needs: Yes Review of Systems Const All systems reviewed & are unremarkable except as noted in HPI and below Physical Exam Vital Signs: BMI result Body Mass Index 22.2 Const General: cooperative, healthy appearing, comfortable, no acute distress, well developed and alert Orientation/consciousness: patient oriented x3 HEENT Head: Yes normal to inspection, Yes normocephalic and Yes atraumatic Eyes General: appearance normal, both eyes and all related structures Resp Effort & Inspection: normal respiratory effort and able to speak in complete sentences Cardio Rate: regular rate Peripheral pulses: Peripheral pulses 2+ throughout GI Palpation (GI): Soft to palpation Skin Lesions: no lesions Rashes: no rashes Neuro General: patient oriented x3 Extrem Other: Left elbow: Normal to inspection. He does have a trace olecranon bursitis. No redness, warmth or tenderness to palpation. He has full ROM without pain. NVI. Assessment & Plan Assessment & Plan (1) Olecranon bursitis, left elbow: Code(s): M70.22 - Olecranon bursitis, left elbow Category: Medical Plan We discussed conservative management, which includes compression, NSAIDs and activity modifications.? If symptoms worsen, the area becomes red, hot and painful, they should return to see me. Otherwise, PRN. Patient Instructions: Scribed for Mai Romeo PA-C, by Roshan Chávez medical lab assistant, on 12/09/2023 at 3:15 PM EST.? I, Mai Romeo PA-C, have personally reviewed and agree with the information entered by the scribe. Coding Level of Care Code New Pt Level 3 (88799) Diagnoses Olecranon bursitis, left elbow M70.22
[2023-12-09 15:19] VITALS: BMI 22.2
== END 2023-12-09 16:01 | disposition home or self-care (01) ==
PROVIDERS: PCP Internal Medicine; Visit Provider Physician Assistant
DX: M70.22 Olecranon bursitis, left elbow (principal)
CPT/HCPCS: 99202

== ENCOUNTER → 2023-12-09 15:10 | Outpatient (BNVA) | payer BC, SELFPAY | PROVIDERS: PCP Internal Medicine; Visit Provider Physician Assistant ==

== ENCOUNTER → 2024-12-14 08:22 | Outpatient (BNVA) | payer BC, SELFPAY | PROVIDERS: PCP Internal Medicine; Visit Provider Internal Medicine ==

== ENCOUNTER 2025-02-08 12:24 | Outpatient (AMB) | payer BC, SELFPAY ==
--- NOTE | 2025-02-08 12:32 | MHC.PC.OV ---
Vital Signs 02/08/25 12:34 Height 5 ft 8 in Weight 138 lb 8 oz BMI 21.1 BP 112/76 Blood Pressure Location Rt brachial Position Sitting Respiration 16 Pulse 77 Pulse Source Pulse Oximeter Temp 98.4 F Temp Source Oral Pulse Oximetry (%) 98 Oxygen Delivery Method Room Air Intake Visit Reasons: PE reschedule Intake Note: Pt is here today for his PE Allergies lactose Allergy (Mild, Verified 02/08/25 13:00) Diarrhea pollen Adverse Reaction (Uncoded 02/08/25 13:00) Itchy Eyes Medication List - Last Reconciled 02/08/25 by Lita Man MD lisinopril 5 mg PO DAILY tadalafil (Cialis) 5 mg PO DAILY Tobacco use date assessed: 02/08/25 Dental Screening Dental Screen Date: 02/08/25 Did you have a dental visit in the last 12 months?: Yes Did you have a dental problem in the last 6 months where you did not have access to dental care?: No Was dental information given to patient?: Patient has dentist HPI PE reschedule HPI Details 49-year-old male with hypertension, history of erectile dysfunction, here today for his physical exam . Active cigarette smoker at least 1 pack per day, interested in quitting smoking and trying the nicotine patch. Has been having intermittent episodes of bright red blood per stool, has history of hemorrhoids, has not yet had a screening for colon cancer Blood pressure stable controlled on lisinopril 5 mg daily, and takes Cialis 5 mg daily for erectile dysfunction. Has been having intermittent episodes of joint pains, would like Lyme titers checked. [facility] Medical History Bleeding hemorrhoid History of Lyme disease Cigarette smoker motivated to quit Smokes 1 pack of cigarettes per day Essential hypertension Polyarthralgia Family history of prostate cancer in father Erectile dysfunction Annual visit for general adult medical examination with abnormal findings Surgical History H/O wisdom tooth extraction Family History Father Prostate cancer, Onset Age: 52 Brother Nephrolithiasis Brother Acute myocardial infarction, Onset Age: 44 Social History Housing: House Alcohol intake: current Alcohol intake frequency: a few times a month Patient Tobacco Use Status: Current everyday Tobacco user Cigarette Packs Per Day: 1 Cigarettes Per Day: 20 e-Cigarette/Vaping Use: Never Used service: No Current occupational status: employed 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 1. Little interest or pleasure in doing things: not at all 2. Feeling down, depressed, or hopeless: not at all 3. Trouble falling or staying asleep, or sleeping too much: not at all 4. Feeling tired or having little energy: not at all 5. Poor appetite or overeating: not at all 6. Feeling bad about yourself - or that you are a failure or have let yourself or your family down: not at all 7. Trouble concentrating on things, such as reading the newspaper or watching television: not at all 8. Moving or speaking so slowly that other people could have noticed. Or the opposite - being so fidgety or restless that you have been moving around a lot more than usual: not at all 9. Thoughts that you would be better off or of hurting yourself in some way: not at all Total score: 0 Depression Screening Interpretation: Negative Depression Screening Done: Yes 27165 - PHQ-9 Billing: Yes Source: Developed by Drs. Howie Burnham, Mitzi Nino, Michael Johns and colleagues, with an educational ghazal from [employer]. Thrive Questionnaire Date Thrive assessed: 12/11/24 I am a: Patient What is your living situation today?: I have a steady place to live Within the past 12 months, did the food you bought not last and you didn't have the money to get more?: Never true Within the past 12 months, did you worry whether your food would run out before you got money to buy more?: Never true Do you have trouble paying for medicines?: No Do you have trouble getting transportation to medical appointments?: No Do you have trouble paying your heating and electricity bill?: No Do you have trouble taking care of your child, family member or friend?: No Do you have trouble with day-to-day activities such as bathing, preparing meals, shopping, managing finances, etc.?: No Are you currently unemployed and looking for a job?: No Are you interested in more education?: No Please select the resources that you would like help with: None Currently or been in a relationship where the following occur: No concerns reported THRIVE Score: 0 AUDIT C Alcohol Use Questionnaire (AUDIT-C) 1. How often do you have a drink containing alcohol?: 4 or more times a week 2. How many drinks containing alcohol do you have on a typical day when you are drinking?: 3 or 4 3. How often do you have six or more drinks on one occasion?: Weekly Total Score: 8 LOLIS-7 AMB Questionnaire LOLIS-7 Date LOLIS - 7 assessed: 11/24/23 Source: Developed by Drs. Howie Burnham, Mitzi Nino, Michael Johns and colleagues, with an educational ghazal from [employer]. Review of Systems Const Reports no additional complaints Eyes Details: Goes to [employer] in [place], wears progressive lenses Reports requires corrective lenses ENT Reports no additional complaints Card Reports no additional complaints Resp Reports no additional complaints GI Denies abdominal pain, Denies belching, Denies melena, Denies bloating, Denies change in bowel habits, Denies excessive flatus, Denies dyspepsia, Denies heartburn, Denies nausea and Denies vomiting Reports no additional complaints Musc Reports no additional complaints Skin/Breast Denies rash Neuro Reports no additional complaints and Denies Sensory deficit (Neuro) Psych Reports no additional complaints Endo Reports no additional complaints Igor/Lymph Reports no additional complaints Aller/Immun Reports no additional complaints Physical exam (Primary Care) Vital Signs: Last Vital Signs Temp 98.4 F 02/08/25 12:34 Pulse 77 02/08/25 12:34 Resp 16 02/08/25 12:34 BP 112/76 02/08/25 12:34 Pulse Ox 98 02/08/25 12:34 Oxygen Delivery Method Room Air 02/08/25 12:34 BMI result Body Mass Index 21.1 Tobacco/Smoking Status: Tobacco use Status Tobacco use date assessed 02/08/25 02/08/25 12:33 Patient Tobacco Use Status Current everyday Tobacco 02/08/25 12:33 Tobacco use type 03/22/23 15:53 e-Cigarette/Vaping Use Never Used 02/08/25 12:33 Are you ready to quit: No Tobacco cessation counseling provided: Yes Depression Screening Interpretation: Negative Thrive Assessment: Date of Thrive Assessment Date Thrive assessed 12/11/24 02/08/25 12:33 Currently or been in a relationship where the following occur: No concerns reported Const General: no acute distress and alert Nutritional Appearance: average body habitus Orientation/consciousness: patient oriented x3 HENMT Other: Gets dental prophylaxis once a year Head: Yes normocephalic and Yes atraumatic Ears: hearing grossly normal bilaterally, external ears normal and Abnormal EAC present excessive cerumen on the left General nose exam: Normal external nose present Face and sinus: Yes face symmetric Mouth: moist mucous membranes Eyes Other: 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, has progressive lenses Conjunctivae: conjunctivae normal Sclerae: sclerae normal Pupils: Equal, round and reactive pupils present EOM: EOMs intact bilaterally Neck Neck: Yes full ROM and Yes no lymphadenopathy Thyroid: Thyroid normal Chest Chest palpation & inspection: normal inspection of the chest and normal palpation of entire chest wall Resp Effort & Inspection: normal respiratory effort and able to speak in complete sentences Auscultation: clear to auscultation bilaterally Cardio Jugular venous distension: no JVD Rate: regular rate Rhythm: regular rhythm Heart sounds: S1 normal heart sound present and S2 normal heart sound present GI Inspection: Yes normal to inspection Palpation (GI): Soft to palpation Auscultation: normal bowel sounds General: Yes no CVA tenderness Back/Spine/Pelvis Back: no CVA tenderness Skin General skin exam: no rashes or lesions noted Neuro General: patient oriented x3, gait normal, moves all extremities, no focal motor deficits and CN's II-XI intact bilaterally Cranial nerves: Yes Equal, round and reactive pupils present Cognition (Neuro): normal cognition Gait exam (Neuro): Normal gait present Motor exam (neuro): 5/5 motor strength present throughout Sensory Exam: No Sensory deficit (Neuro) Extrem General: Yes normal to inspection, Yes full ROM, Yes no pedal edema and Yes normal gait Left upper extremity: elbow/forearm Details: swelling Location: of the olecranon Psych Appearance: grossly normal and well kempt Mental Status: mental status grossly normal Speech and movement: Normal speech and movement present Affect: normal affect Coding Level of Care Code Est Pt Prev Care 40-64y(51548) Diagnoses Annual visit for general adult medical examination with abnormal findings Z00.01 Essential hypertension I10 Smokes 1 pack of cigarettes per day F17.210 Cigarette smoker motivated to quit F17.210 Encounter for screening for malignant neoplasm of colon Z12.11 History of Lyme disease Z86.19 Bleeding hemorrhoid K64.9 Erectile dysfunction, unspecified erectile dysfunction type N52.9 Erectile dysfunction type: unspecified Additional Codes PHQ-9 - 03513 - PHQ-9 Billing: Yes ([id number]) Assessment & Plan Assessment & Plan (1) Annual visit for general adult medical examination with abnormal findings: Code(s): Z00.01 - Encounter for general adult medical examination with abnormal findings Category: Medical Plan: Will check appropriate labs. Continue regular dental visit every 6 months and regular eye exams, at least every 2 years goes to [facility] in [place]. Take adequate calcium in diet and vitamin-D 3 at 2000 IU per cap once a day, in addition to weight-bearing exercises to help maintain good muscle tone and weight control. Instructed to do s self-testicular exam check for any mass. Referred for his initial colon cancer screening to [facility]. Does not want to get flu vaccine or COVID booster, due for his tetanus shot, last 1 given in 2013. Patient states he will get a tetanus booster at the pharmacy. (2) Essential hypertension: Code(s): I10 - Essential (primary) hypertension Category: Medical Plan: Blood pressure at goal of less than 130/80. Continue with current medication. Reinforced importance of following a low sodium diet, getting regular exercise, and lowering stress levels. (3) Smokes 1 pack of cigarettes per day: Code(s): F17.210 - Nicotine dependence, cigarettes, uncomplicated Category: Social Hx Plan: Patient motivated to quit will start her on nicotine patch (4) Cigarette smoker motivated to quit: Code(s): F17.210 - Nicotine dependence, cigarettes, uncomplicated Category: Social Hx Plan: Discussed options for smoking cessation with medications. Pt wishes to try Nicotine patch. Pt advised to apply the nicotine patch as directed on cigarette , rotate sites of application. Remove patch at nightscu before sleeping. Discussed common side effects and strongly advised not to smoke while using the patch. If developes any adverse effects please call office. Follow up in office 4- weeks (5) Encounter for screening for malignant neoplasm of colon: Code(s): Z12.11 - Encounter for screening for malignant neoplasm of colon Plan: Referred to [facility] for his initial colon cancer screening (6) History of Lyme disease: Code(s): Z86.19 - Personal history of other infectious and parasitic diseases Category: Medical Plan: Lab ordered to check Lyme titer (7) Bleeding hemorrhoid: Code(s): K64.9 - Unspecified hemorrhoids Category: Medical Plan: Will check CBC advised to try doing warm Sitz baths (8) Erectile dysfunction: Code(s): N52.9 - Male erectile dysfunction, unspecified Category: Medical Qualifiers: Erectile dysfunction type: unspecified Qualified Code(s): N52.9 - Male erectile dysfunction, unspecified Plan: Refill sent for Cialis Orders: Orders Lyme IgG/IgM w/reflex to WB Today I10 - Essential (primary) hypertension, K64.9 - Unspecified hemorrhoids, Z00.01 - Encounter for general adult medical examination with abnormal findings, Z13.220 - Encounter for screening for lipoid disorders, Z86.19 - Personal history of other infectious and parasitic diseases Complete Blood Count Auto Diff Today I10 - Essential (primary) hypertension, K64.9 - Unspecified hemorrhoids, Z00.01 - Encounter for general adult medical examination with abnormal findings, Z13.220 - Encounter for screening for lipoid disorders, Z86.19 - Personal history of other infectious and parasitic diseases Referrals Gastroenterology Referral Z12.11 - Encounter for screening for malignant neoplasm of colon Medications: New nicotine 1 patch transdermal DAILY 28 ea 0RF F17.210 - Nicotine dependence, cigarettes, uncomplicated Refilled tadalafil (Cialis) 5 mg PO DAILY 30 tabs 5RF Erectile Dysfunction lisinopril 5 mg PO DAILY 90 tabs 4RF I10 - Essential (primary) hypertension
[2025-02-08 12:34] VITALS: BP 112/76; PULSE 77; RESP 16; TEMP 36.9; O2SAT 98; BMI 21.1
== END 2025-02-08 13:22 | disposition home or self-care (01) ==
LOC: HO.HMCC 12:24
PROVIDERS: PCP Internal Medicine; Visit Provider Internal Medicine
DX: Z00.01 Encounter for general adult medical examination with abnormal findings (principal); I10 Essential (primary) hypertension; F17.210 Nicotine dependence, cigarettes, uncomplicated; Z12.11 Encounter for screening for malignant neoplasm of colon; Z86.19 Personal history of other infectious and parasitic diseases; K64.9 Unspecified hemorrhoids; N52.9 Male erectile dysfunction, unspecified

== ENCOUNTER → 2025-02-08 12:24 | Outpatient (BNVA) | payer BC, SELFPAY | PROVIDERS: PCP Internal Medicine; Visit Provider Internal Medicine | DX: Z00.01 Encounter for general adult medical examination with abnormal findings (principal); I10 Essential (primary) hypertension; N52.9 Male erectile dysfunction, unspecified; K64.9 Unspecified hemorrhoids; F17.210 Nicotine dependence, cigarettes, uncomplicated; Z86.19 Personal history of other infectious and parasitic diseases | CPT/HCPCS: 96127 ==

== ENCOUNTER 2025-04-10 14:18 | Outpatient (AMB) | payer BC, SELFPAY ==
--- NOTE | 2025-04-10 14:22 | A.OFFVIS_ITS ---
Vital Signs 04/10/25 14:27 Height 5 ft 8 in Weight 134 lb BMI 20.4 BP 120/80 Blood Pressure Location Rt brachial Position Sitting Pulse 70 Pulse Source Pulse Oximeter Pulse Oximetry (%) 99 Oxygen Delivery Method Room Air Intake Visit Reasons: 30 m. [facility] 2022. Rescreening for colo Intake Note: Est pt for rescreening prior to initial colo. [facility] 2022 but never had procedure. CC: C.O. BRB per rectum, hx of hemorrhoids, general GI upset, and occasional GERD. Taking OTC Imodium and TUMS PRN without complication. 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 [facility] 2022. Rescreening for colo: Details: LAST VISIT: 02/01/2023 Screen for colon cancer Patient denies any GI, cardiac or respiratory symptoms.? Denies any issues with anesthesia in the past.? Denies any history of sleep apnea.? No history infectious diseases in the past or present.? Not on any anticoagulation therapy.? No family or personal history of colon cancer or polyps.? Patient denies melena, hematochezia, unintentional weight loss or ribbon like stools.? Discussed at length the pre-procedure,? prep, diet & medications as well as what to expect prior, during and after the procedure.?? Stressed the importance of good bowel prep. ?Recommended the use of Vaseline or Calmoseptine OTC & baby wipes with bowel movements to promote comfort.? ?Patient verbalizes understanding and agrees to plan of care.? He was given the opportunity to ask questions and all questions answered.? We will see him after the procedure.? Reminded patient to going get blood work done that was ordered by PCP. TODAY'S VISIT Patient was last seen in January of 2023. Has not done for colonoscopy yet. Patient for got and recently see by PCP and we sent for screening. Patient denies any change since last visit. See above HPI note. No changes except patient has occasional rectal bleed. He notes that he has hemorrhoids. Denies melena, unintentional weight loss or ribbon like stools. Patient denies any cardiac or respiratory symptoms PFS Medical History Bleeding hemorrhoid History of Lyme disease Cigarette smoker motivated to quit Smokes 1 pack of cigarettes per day Essential hypertension Polyarthralgia Family history of prostate cancer in father Erectile dysfunction Annual visit for general adult medical examination with abnormal findings Surgical History H/O wisdom tooth extraction Family History Father Prostate cancer, Onset Age: 52 Brother Nephrolithiasis Brother Acute myocardial infarction, Onset Age: 44 Social History Housing: House Alcohol intake: current Alcohol intake frequency: a few times a month Patient Tobacco Use Status: Current everyday Tobacco user Cigarette Packs Per Day: 1 Cigarettes Per Day: 20 e-Cigarette/Vaping Use: Never Used service: No Current occupational status: employed 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, 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 Cognitive needs: No Hearing needs: No Vision needs: Yes Review of Systems Const Denies weight gain and Denies weight loss ENT Reports no additional complaints, Denies dysphagia and Denies odynophagia Card Reports no additional complaints Resp Reports no additional complaints GI Denies abdominal pain, Denies belching, Denies melena, Denies bloating, Reports hematochezia, Denies change in bowel habits, Denies dysphagia, Denies excessive flatus, Denies dyspepsia, Denies heartburn, Denies diarrhea, Denies loose stools, Denies nausea, Denies odynophagia and Denies vomiting Reports no additional complaints Musc Reports no additional complaints Neuro Reports no additional complaints Psych Reports no additional complaints Endo Reports no additional complaints Physical Exam Vital Signs: Last Vital Signs Pulse 70 04/10/25 14:27 BP 120/80 04/10/25 14:27 Pulse Ox 99 04/10/25 14:27 Oxygen Delivery Method Room Air 04/10/25 14:27 BMI result Body Mass Index 20.4 Const General: healthy appearing, no acute distress and well developed Nutritional Appearance: well nourished Orientation/consciousness: patient oriented x3 Resp Effort & Inspection: normal respiratory effort, able to speak in complete sentences, no tracheal deviation and symmetric chest movement Auscultation: clear to auscultation bilaterally Cardio Rate: regular rate GI Inspection: Yes normal to inspection and No distended Palpation (GI): Soft to palpation, not firm, nontender and No hepatosplenomegaly present Auscultation: normal bowel sounds General: Yes no CVA tenderness Back/Spine/Pelvis Back: no CVA tenderness Skin General skin exam: elasticity normal, turgor normal and dry skin Neuro General: patient oriented x3 Psych Appearance: grossly normal Mental Status: mental status grossly normal Assessment & Plan Assessment & Plan (1) Bleeding hemorrhoid: Code(s): K64.9 - Unspecified hemorrhoids Category: Medical (2) Encounter for screening for malignant neoplasm of colon: Code(s): Z12.11 - Encounter for screening for malignant neoplasm of colon Plan Script sent for Proctosol. Increase fiber intake and activity to promote better bowel motility. Sitz baths with Epsom salts. Patient will be sent for colonoscopy. What to expect before during and after procedure discussed with patient. Stressed the importance of good bowel prep and clear liquid diet day before procedure. I will see patient after the procedure, sooner on as needed basis. Patient is agreeable this plan and verbalizes understanding of instructions. He was given the opportunity to ask questions and all questions answered. Thank you for allowing me to participate in his care Medications: New hydrocortisone 2.5% (Proctosol HC) 1 appl WI BID-QID PRN 30 grams 2RF hemorrhoids K64.9 - Unspecified hemorrhoids bisacodyl (Dulcolax (bisacodyl)) take 4 tabs at noon the day before your colonoscopy 20 mg (4 x 5 mg) PO ONCE 4 tabs 0RF constipation 1 day Z12.11 - Encounter for screening for malignant neoplasm of colon polyethylene glycol 3350 (Miralax) As directed by gastroenterology department at [facility] 238 grams PO ONCE 238 grams 0RF Z12.11 - Encounter for screening for malignant neoplasm of colon Coding Level of Care Code Est Pt Level 3 (23780) Diagnoses Bleeding hemorrhoid K64.9 Encounter for screening for malignant neoplasm of colon Z12.11 Time Spent (min) 35 Comment 25 minutes spent with patient and additional 10 minutes spent reviewing his records
[2025-04-10 14:27] VITALS: BP 120/80; PULSE 70; O2SAT 99; BMI 20.4
== END 2025-04-10 15:04 | disposition home or self-care (01) ==
LOC: HO.HGI 14:19
PROVIDERS: PCP Internal Medicine; Visit Provider Nurse Practitioner Family
DX: Z01.818 Encounter for other preprocedural examination (principal); Z12.11 Encounter for screening for malignant neoplasm of colon; K64.9 Unspecified hemorrhoids
CPT/HCPCS: S0285

== ENCOUNTER 2025-06-12 07:52 | Day surgery (SDC) | payer BC, SELFPAY ==
--- NOTE | 2025-06-08 13:44 | P.CONAN_ITS ---
Documented by User: Janki Wang NP 06/08/25 13:44 HPI - Anesthesia Eval Consult details Narrative: 49 yr old male for colonoscopy +Tobacco use: 1 pk per day PMFSH Active Problems Active Problems: All Active Problems Bleeding hemorrhoid (Acute) History of Lyme disease (Acute) Cigarette smoker motivated to quit (Acute) Smokes 1 pack of cigarettes per day (Acute) Olecranon bursitis, left elbow (Acute) Essential hypertension (Acute) Erectile dysfunction (Acute) Annual visit for general adult medical examination with abnormal findings (Acute) Past Medical History Medical History Bleeding hemorrhoid History of Lyme disease Cigarette smoker motivated to quit Smokes 1 pack of cigarettes per day Essential hypertension Polyarthralgia Family history of prostate cancer in father Erectile dysfunction Annual visit for general adult medical examination with abnormal findings Family History Family History Father Prostate cancer, Onset Age: 52 Brother Nephrolithiasis Brother Acute myocardial infarction, Onset Age: 44 Surgical History Surgical History H/O wisdom tooth extraction Social History Social History Housing: House Alcohol intake: current Alcohol intake frequency: a few times a month Patient Tobacco Use Status: Current everyday Tobacco user Tobacco use type: Cigarette Cigarette Packs Per Day: 1 Cigarettes Per Day: 20.0 e-Cigarette/Vaping Use: Never Used Use of substances other than those prescribed or required for medical reasons: No Are you DNR?: No Advance Directives: No Advance Directives Information Provided: Yes service: No Current occupational status: employed 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, 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 Cognitive needs: No Hearing needs: No Vision needs: Yes Meds Allergies Allergy/AdvReac Type Severity Reaction Status Date / Time lactose Allergy Mild Diarrhea Verified 06/12/25 08:40 Seasonal Allergies Allergy Unknown Itchy Eyes Verified 06/12/25 08:40 Documented by User: Brandi Monahan MD 06/12/25 09:33 [facility] Past Medical History Medical History Bleeding hemorrhoid History of Lyme disease Cigarette smoker motivated to quit Smokes 1 pack of cigarettes per day Essential hypertension Polyarthralgia Family history of prostate cancer in father Erectile dysfunction Annual visit for general adult medical examination with abnormal findings Family History Family History Father Prostate cancer, Onset Age: 52 Brother Nephrolithiasis Brother Acute myocardial infarction, Onset Age: 44 Family history of problems with anesthesia: No Surgical History Surgical History H/O wisdom tooth extraction History of Problems with Anesthesia: No Social History Social History Housing: House Alcohol intake: current Alcohol intake frequency: a few times a month Patient Tobacco Use Status: Current everyday Tobacco user Tobacco use type: Cigarette Cigarette Packs Per Day: 1 Cigarettes Per Day: 20.0 e-Cigarette/Vaping Use: Never Used Use of substances other than those prescribed or required for medical reasons: No Are you DNR?: No Advance Directives: No Advance Directives Information Provided: Yes service: No Current occupational status: employed 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, 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 Cognitive needs: No Hearing needs: No Vision needs: Yes Meds Allergies Allergy/AdvReac Type Severity Reaction Status Date / Time lactose Allergy Mild Diarrhea Verified 06/12/25 08:40 Seasonal Allergies Allergy Unknown Itchy Eyes Verified 06/12/25 08:40 Exam Airway Mallampati Class: II TM Dist: >3cm Neck ROM: Full Heart: rrr Lungs: cta Assessment and Plan Assessment Anesthesia Assessment: Anesthesia Plan Discussed and Chart Reviewed Final Anesthetic Review Family History of Problems with Anesthesia: No History of Problems with Anesthesia: No NPO: Yes ASA Class: II Final Preanesthetic Review: No Changes in Pt Med Stat, Meds/Allgs Chart Reviewed, Consent Obtained/Reviewed and Anes Risks/Benef Reviewed Patient Risk: Low Procedure Risk: Low Anesthetic Plan Anesthetic Plan: MAC: and Agree w/ Assess. and Plan Disposition: Standard PACU
[2025-06-08 14:34] VITALS: BMI 20.4
[2025-06-12 08:40] VITALS: BMI 19.9
[2025-06-12 08:47] VITALS: BP 155/95; PULSE 90; RESP 14; TEMP 36.9; O2SAT 99
[2025-06-12] MEDS: Lactated Ringers 1,000 ML 100 ML IVCONT (09:00)
--- NOTE | 2025-06-12 10:15 | MHC.SHP ---
Pre-Procedural Eval Section A - 24 Hr Update-Section A only Date of Service: 06/12/25 Section B - Complete if H&P > 30 days Chief Complaint: screening Relevant Family History (Specify if Yes): No Relevant Social History: Tobacco Use Present Medications: see Short Stay Collaborative assessment Medical History: Significant History (Bleeding hemorrhoid History of Lyme disease Cigarette smoker motivated to quit Smokes 1 pack of cigarettes per day Essential hypertension Polyarthralgia Family history of prostate cancer in father Erectile dysfunction) History of Previous Operations: Relevant previous surgery/procedure and date(s) ( H/O wisdom tooth extraction) Allergies: Allergies Allergy/AdvReac Type Severity Reaction Status Date / Time lactose Allergy Mild Diarrhea Verified 06/12/25 08:40 Seasonal Allergies Allergy Unknown Itchy Eyes Verified 06/12/25 08:40 Review of Systems Sugical H&P ROS: Negative: Constitution, Cardiovascular, Respiratory, Neurological, Psychiatric, Hem-Onc, Allergic/Immunologic, Gastrointestinal, Genitourinary, Musculoskeletal, Integumentary, Endocrine and Eyes/Ears/Nose/Throat Exam Surgical H&P Exam: Normal: HEENT, Normal: Heart, Normal: Lungs, Normal: Extremities, Normal: Abdomen, Normal: Skin and Normal: Neurological Plan Diagnosis/Plan: Unchanged I have reviewed the history and physical and performed a pertinent physical examination on my patient. No changes have occurred unless specified. Time Spent With Patient Time: Total time managing care of this patient today ____ minutes.
--- NOTE | 2025-06-12 10:58 | HO.OPN-COLON ---
Colonoscopy Operative Note Operative Note Date of Service: 06/12/25 Narrative: Operative Information Procedure Description: Colonoscopy Indication: screening Anesthesia: MAC COLONOSCOPY Instrument: Olympus variable stiffness pediatric scope 190L Colonoscopy Monitoring: Vital signs and clinical assessment, continuous EKG monitoring, Pulse oximetry, Carbon Dioxide monitoring and blood pressure monitoring were done throughout the procedure. Colon withdrawal time was 17 minutes. Procedure: The patient was placed in the left lateral decubitis position and pre-procedure medications were administered. After a digital rectal examination of the ano-rectum, the video colonoscope was inserted into the rectum and advanced through the colon to the cecum/TI. The colonoscope was slowly withdrawn in a retrograde panoramic fashion and the colon mucosa was carefully examined including a retroflexed view of the rectum. Findings and interventions are described below. Procedure Difficulty: easy Findings: Terminal Ileum-normal Cecum:normal Ascending Colon: normal Transverse Colon -normal Descending Colon:normal Sigmoid Colon: distal sigmoid with semi pedunculated polyp approx 15 mm in diameter, injected with epinephrine then removed with hot snare with clip applied to defect. Rectum: Retroflexion with medium sized internal hemorrhoids seen, grade I Anorectum - normal Intervention: hot snare and epinpehrine with clip Colon preparation: [place] Bowel Preparation Scale Right colon; 2 Transverse colon: 2 Left colon; 2 (0 = Unprepared colon segment with mucosa not seen due to solid stool that cannot be cleared. 1 = Portion of mucosa of the colon segment seen, but other areas of the colon segment not well seen due to staining, residual stool and/or opaque liquid. 2 = Minor amount of residual staining, small fragments of stool and/or opaque liquid, but mucosa of colon segment seen well. 3 = Entire mucosa of colon segment seen well with no residual staining, small fragments of stool or opaque liquid) Impression and Post Procedure Diagnosis: colon polyp x 1 internal hemorrhoids Plan: High fiber diet leaflet Avoid straining at stool, epsom salts and sitz bath, anusol supps or cream Repeat Colonoscopy in 3 years due to polyp size or earlier if clinically indicated Above findings were reviewed with the patient and relevant handouts were provided if indicated.
[2025-06-12 11:02] VITALS: BP 120/78; PULSE 90; RESP 12; TEMP 36.1; O2SAT 97
[2025-06-12 11:17] VITALS: BP 126/84; PULSE 69; RESP 13; O2SAT 100
[2025-06-12 11:32] VITALS: BP 135/91; PULSE 65; RESP 12; O2SAT 100
== END 2025-06-12 12:28 | disposition home or self-care (01) ==
PROVIDERS: PCP Internal Medicine; Visit Provider Internal Medicine Gastroenterology
PROC: 0DJD8ZZ Inspection of Lower Intestinal Tract, Via Natural or Artificial Opening Endoscopic (ICD-10-PCS; CPT 45378; principal; 2025-06-12 11:40)
DX: Z12.11 Encounter for screening for malignant neoplasm of colon (principal); K64.0 First degree hemorrhoids; D12.5 Benign neoplasm of sigmoid colon
CPT/HCPCS: 45385; 45381; 88305; J0168; J2003; J2704

== ENCOUNTER → 2025-06-12 07:52 | Outpatient (BNV) | payer BC, SELFPAY | PROVIDERS: PCP Internal Medicine; Visit Provider Internal Medicine Gastroenterology | DX: Z12.11 Encounter for screening for malignant neoplasm of colon (principal); K63.5 Polyp of colon; K64.0 First degree hemorrhoids | CPT/HCPCS: 45385 ==